=== PATIENT | female | born 1990 | race Two or more races ===

== ENCOUNTER 2021-08-15 07:37 | Outpatient (REF) | payer SELFPAY ==
[2021-08-15 08:20] LABS: COVID-19 Test Negative (Negative)
== END 2021-08-15 07:38 | disposition home or self-care (01) ==
LOC: HO.LAB 07:37
PROVIDERS: Visit Provider Internal Medicine
DX: Z20.822 Contact with and (suspected) exposure to COVID-19 (principal)
CPT/HCPCS: 36415; 87635; C9803

== ENCOUNTER 2022-10-09 08:23 | Emergency (ER) | payer OTHER, SELFPAY ==
--- NOTE | ~2022-10-09 | XR_ITS ---
EXAMINATION: XR CHEST CLINICAL INFORMATION: Shortness of breath for one month COMPARISON: None TECHNIQUE: Frontal view of the chest was obtained. FINDINGS: Normal symmetric lung volumes. No parenchymal consolidation. No pleural effusion. No pneumothorax. Cardiomediastinal silhouette and pulmonary vascularity are within normal limits. No acute osseous abnormalities. XR/XR chest 1V IMPRESSION: Clear lungs
[2022-10-09 08:26] VITALS: BP 145/89; PULSE 67; RESP 18; TEMP 37.2; O2SAT 100; BMI 32.2
[2022-10-09 09:22] LABS: COVID-19 Test Negative (Negative); IDNOW Serial# 16C4AD1C; IDNOW Serial# BCCEAD1C; Influenza A Negative (Negative); Influenza B2 Negative (Negative)
[2022-10-09 09:50] VITALS: PULSE 70; RESP 16; O2SAT 99
[2022-10-09] MEDS: Albuterol Sulfate (0.083%) 2.5 MG/3 ML VIAL.NEB 5 MG INHALE (09:50)
[2022-10-09 10:07] LABS: MANUAL DIFF FLAG NO
[2022-10-09 10:10] LABS: Basophils Absolute Auto 0.2 X10*3/uL (0.0-0.2); Basophils Percent Auto 1.7 % (0-2); Eosinophils Absolute Auto 1.2 X10*3/uL (0.0-0.4); Eosinophils Percent Auto 12.8 % (0-4); Hemoglobin 13.3 g/dl (12.0-16.0); Imm Gran Abs Auto 0.04 X10*3/uL (0.00-0.03); Imm Gran Pct Auto 0.4 % (0.0-0.4); Lymphocytes Absolute Auto 3.2 X10*3/uL (1.2-4.9); Mean Corpuscular HGB Conc 34.1 g/dl (31.0-35.0); Mean Corpuscular Hemoglobin 29.4 pg (27.0-33.0); Mean Corpuscular Volume 86.3 fL (80.0-98.0); Mean Platelet Volume 10.4 fL (9.4-12.3); Monocytes Absolute Auto 0.5 X10*3/uL (0.1-1.2); Neutrophils Absolute Auto 4.1 x10*3/uL (2.0-8.3); Neutrophils Percent Auto 45.1 % (45-73); Platelet Count 274 X10*3/uL (160-400); Red Blood Count 4.52 X10*6/uL (4.20-5.50); Red Cell Distribution Width 12.9 % (11.0-16.0)
[2022-10-09 10:17] LABS: Prothrombin Time 11.1 SEC (10.0-13.1)
[2022-10-09 10:20] VITALS: PULSE 70; RESP 16; O2SAT 100
[2022-10-09 10:20] LABS: D Dimer High Sensitivity < 150 NG/ML
--- NOTE | 2022-10-09 10:22 | PC.NURSE ---
Pt is alert/oriented. Reports intermittent SOB since Aug. after having a cold. Cough has resolved however pt continues to feel SOB with exertion. Also notes partner states breathing is weird at night Has sleep study soon for testing. Receiving updraft at this time, sat 100% LS with sl exp wheezes throughout, breathing even/unlabored. Skin pwd.
[2022-10-09 10:37] LABS: B Type Natriuretic Peptide 10 pg/mL (<100)
[2022-10-09 10:39] LABS: Alanine Aminotransferase 27 U/L (0-31); Albumin Level 4.2 g/dL (3.5-5.0); Alkaline Phosphatase 91 U/L (39-117); Anion Gap 12 (12-20); Aspartate Amino Transferase 19 U/L (5-31); Bilirubin Total 0.8 mg/dL (0.0-1.0); Blood Urea Nitrogen 11 mg/dL (9-16); Calcium 9.3 mg/dL (8.4-10.2); Carbon Dioxide 23 mmol/L (22-29); Chloride 107 mmol/L (96-108); Estimated Glomerular Filt Rate > 60; Glucose Random 89 mg/dL (60-115); Magnesium 1.8 mg/dL (1.6-2.6); Sodium 138 mmol/L (135-145); Total Protein 6.8 g/dL (6.5-8.0)
[2022-10-09 10:40] LABS: HCG Quantitative < 2 mIU/mL
--- NOTE | 2022-10-09 11:21 | ED.SOB ---
HPI - SOB/Dyspnea General Chief Complaint: Dyspnea Stated Complaint: Diff breathing Time Seen by Provider: 10/09/22 09:33 Source: patient Mode of arrival: ambulatory Limitations: no limitations History of Present Illness HPI Narrative: 31yoF with only PSHx of abdominal plasty no other medical history per patient who is presenting to the ER with complaints of generalized fatigue/malaise, intermittent productive to nonproductive cough with shortness of breath since . Reports that she had some type of cold on and since then she has been having this residual cough with shortness of breath and generalized fatigue/malaise. Reports that she was using her friend's albuterol inhaler and that provided mild symptomatic relief. Therefore she called her PCP and they also prescribed her an albuterol inhaler. She has a follow-up appointment with a corporate operations compliance manager on Saturday this week. Although she reports over the past few days she has feels like she is getting worse winded which is speaking short sentences and walking or any type of movement. Reports she is on an IUD. Denies any fevers, recent travel, dizziness, chest pain, orthopnea, palpitations, paresthesias, nausea/vomiting/diarrhea, abdominal pain, waking, lower extremity edema or calf tenderness, recent travel on a long plane/train/airplane ride, any estrogen usage, history of DVT or PE, hypercoagulation disorder, history of cancer recent immobilization or any IV drug use or any other symptoms complaints or concerns at this time. MD elicited complaint: shortness of breath, cough and pain with inspiration Onset (ago): day(s) (1 month and a half worse in past few days including today) Timing: constant and progressively worsening Severity: moderate Exacerbating factors: exertion, movement, coughing, inspiration, talking and deep breaths Relieving factors: nothing Associated symptoms: cough and sputum production Treatment prior to arrival: none Related Data Home oxygen amount: none Previous Rx's Medication Instructions Recorded albuterol sulfate 90 mcg/actuation 1 inh inhalation QID PRN shortness 10/09/22 aerosol inhaler of breath or wheezing #8.5 grams prednisone 20 mg tablet 40 mg PO DAILY 5 days #10 tabs 10/09/22 Allergies Allergy/AdvReac Type Severity Reaction Status Date / Time No Known Allergies Allergy Unverified 05/05/20 16:32 Review of Systems Review of Systems: Constitutional : No Weight loss, No Fever, No Chills, No Night Sweats, + Fatigue, + Malaise ENT/Mouth : No Hearing loss, No Ear Pain, No Nasal Congestion, No Sinus Pain, No Hoarseness, No sore throat, No Rhinorrhea, No Swallowing Difficulty Eyes: No Eye Pain, No Swelling, No Redness, No Foreign Body, No Discharge, No Vision Changes Cardiovascular : No Chest Pain, + SOB, + Dyspnea on Exertion, No Orthopnea, No Edema, No Palpitations Respiratory : + Cough, + Sputum, No Wheezing, No Smoke Exposure, + Dyspnea Gastrointestinal : No Nausea, No Vomiting, No Diarrhea, No Constipation, No abdominal Pain, No Hematochezia, No Melena Genitourinary : no irregular bleeding, No Dysuria, No Urinary Frequency, No Hematuria, No Urinary Incontinence, No Urgency, No Flank Pain, No Urinary Flow Changes, No Hesitancy Musculoskeletal : No joint pain, + Myalgias, No Joint Swelling Skin : No Skin Lesions, No rash Neuro : No Weakness, No Numbness, No Paresthesias, No Loss of Consciousness, No Dizziness, No Headache Psych : No Anxiety/Panic, No Depression, No SI/HI/AH/VH, No Social Issues, Heme/Lymph: No Bruising, No Bleeding,No Lymphadenopathy Endocrine : No Polyuria, No Polydipsia, No Temperature Intolerance Yes all other systems are reviewed and are negative [facility] Past Medical History Attestation statement: The following information was validated with the patient. Source: old records reviewed and nursing notes reviewed Social History Social History Smoked in Last 30 Days: No Use of substances other than those prescribed or required for medical reasons: Yes Substance Use Type: Marijuana Advance Directives: No Advance Directives Information Provided: Yes Physical Exam Vital Signs: Vital Signs: Last Vital Signs Temp 98.9 F 10/09/22 08:26 Pulse 70 10/09/22 10:20 Resp 16 10/09/22 10:20 BP 145/89 H 10/09/22 08:26 Pulse Ox 100 10/09/22 10:20 O2 Del Method 10/09/22 10:20 BMI result Body Mass Index 32.2 vital signs have been reviewed as normal and appeared to be correct. Blood pressure 145/89 Heart rate normal. Respiration rate normal. Temperature normal. Oxygen saturation normal. Appearance: Alert. Oriented X3. No acute distress. Head: Normal external exam. Normocephalic. Atraumatic. Eyes: PERRLA. EOMI. Conjunctiva and sclera normal. Eyelids normal. ENT: EAC normal. TM's Normal. Pharynx normal. Uvula midline. Moist mucous membranes. No lesions/ulcerations or masses noted on the tongue. Normal voice. No trismus noted. No drooling noted. No muffled voice noted. Neck: Normal inspection. Neck supple. FROM. No adenopathy. Thyroid Normal. No tracheal deviation noted. No crepitus is noted. No meningeal signs. No neck mass noted. No signs of trauma noted. CVS: Normal heart rate and rhythm. Heart sound normal. Pulses normal throughout. No murmurs/rales/gallops. Respiratory: No respiratory distress. Painless inspiration. Breath sounds normal. No wheezes/rales/rhonchi noted. Chest nontender. No crepitus is noted. No accessory muscle usage noted or decreased air movement noted. No signs of trauma. Abdomen: Soft and nontender. Nondistended. No guarding. No rigidity. Bowel sounds normal in all 4 quadrants. No distention noted. No organomegaly noted. No visible injury noted. No rebound tenderness. Negative Rovsing sign. Negative obturator's sign. Negative psoas sign. Negative Sullivan sign. Back: Full range of motion noted. Skin: Skin warm and dry. Normal skin color. Normal skin turgor. No rashes/lesions/lacerations noted. Extremities: No lower extremity edema. No calf tenderness is noted. Extremities exhibit normal range of motion and nontender. Neuro: Oriented X 3. No motor deficit. No sensory deficit. Reflexes normal. Normal steady gait. No focal neuro deficits noted. CN's II-XII intact bilaterally? Vascular: + radial pulses/+ 2 distal pedal pulses/+2 dorsalis pedis b/l. Normal cap refill. No cyanosis noted to upper extremity nails and lower extremity toes nails. Course Course Course Narrative: 31yoF with only PSHx of abdominal plasty no other medical history per patient who is presenting to the ER with complaints of generalized fatigue/malaise, intermittent productive to nonproductive cough with shortness of breath since . Reports that she had some type of cold on and since then she has been having this residual cough with shortness of breath and generalized fatigue/malaise. Reports that she was using her friend's albuterol inhaler and that provided mild symptomatic relief. Therefore she called her PCP and they also prescribed her an albuterol inhaler. She has a follow-up appointment with a corporate operations compliance manager on Saturday this week. Although she reports over the past few days she has feels like she is getting worse winded which is speaking short sentences and walking or any type of movement. Reports she is on an IUD. This patient presents with acute cough, most consistent with bronchitis. Presentation not consistent with acute bacterial pneumonia, influenza, asthma, transient airway hyperresponsiveness. Presentation not consistent with chronic causes of cough (including GERD, asthma, postnasal discharge, medication side effect, CHF, lung cancer or mass). Not consistent with PE as she has no risk factors. Patient had labs and all labs are within normal limits. Negative D-dimer. BNP is negative. She is negative for COVID and flu. Chest x-ray is within normal limits. Therefore at this time patient most likely viral bronchitis. She received a breathing treatment. Reports she feels a little bit better. Has a follow-up on Saturday with a corporate operations compliance manager. Therefore at this time will DC home with steroids and albuterol inhaler and instructions to follow-up with PCP/corporate operations compliance manager and to return if any new or worsening symptoms. Patient understands agrees with this plan. Medications Administered Discontinued Medications Generic Name Dose Route Start Last Admin Trade Name Dana PRN Reason Stop Dose Admin Albuterol Sulfate 5 mg 10/09/22 09:40 10/09/22 09:50 Albuterol Sulfate (0.083%) 2.5 Mg/3 Ml Vial.Neb INHALE 10/09/22 09:41 5 mg ONCE ONE Administration Medical Decision Making Lab Data MDM Lab Attestation statement: I reviewed the patient's lab results. 10/09/22 10:03 10/09/22 10:03 Labs: Lab Results 10/09/22 10/09/22 10/09/22 Range/Units 08:55 08:55 10:03 WBC 9.0 (4.8-10.8) X10*3/uL RBC 4.52 (4.20-5.50) X10*6/uL Hgb 13.3 (12.0-16.0) g/dl Hct 39.0 (37.0-47.0) % MCV 86.3 (80.0-98.0) fL MCH 29.4 (27.0-33.0) pg MCHC 34.1 (31.0-35.0) g/dl RDW 12.9 (11.0-16.0) % Plt Count 274 (160-400) X10*3/uL MPV 10.4 (9.4-12.3) fL Immature Gran % (Auto) 0.4 (0.0-0.4) % Neut % (Auto) 45.1 (45-73) % Lymph % (Auto) 35.0 (20-40) % [place] % (Auto) 5.0 (2-11) % Eos % (Auto) 12.8 H (0-4) % Baso % (Auto) 1.7 (0-2) % Lymph # (Auto) 3.2 (1.2-4.9) X10*3/uL [place] # (Auto) 0.5 (0.1-1.2) X10*3/uL Eos # (Auto) 1.2 H (0.0-0.4) X10*3/uL Baso # (Auto) 0.2 (0.0-0.2) X10*3/uL Abs Immat Gran (auto) 0.04 H (0.00-0.03) X10*3/uL Absolute Neuts (auto) 4.1 (2.0-8.3) x10*3/uL Absolute Nucleated RBC 0.000 (0.0-0.012) X10*3/uL Nucleated RBC % (auto) 0.0 (0.0-0.2) /100WBC PT (10.0-13.1) SEC INR (0.9-1.1) D-Dimer High Sensitivty NG/ML Sodium (135-145) mmol/L Potassium (3.3-5.1) mmol/L Chloride (96-108) mmol/L Carbon Dioxide (22-29) mmol/L Anion Gap (12-20) BUN (9-16) mg/dL Creatinine (0.5-1.4) mg/dL Estim Creat Clear Calc Estimated GFR Random Glucose (60-115) mg/dL Calcium (8.4-10.2) mg/dL Magnesium (1.6-2.6) mg/dL Total Bilirubin (0.0-1.0) mg/dL AST (5-31) U/L ALT (0-31) U/L Alkaline Phosphatase (39-117) U/L B-Natriuretic Peptide (<100) pg/mL Total Protein (6.5-8.0) g/dL Albumin (3.5-5.0) g/dL Beta HCG, Quant mIU/mL COVID-19 (ROVERTO) Negative (Negative) COVID-19 Clin Com See Note Influenza Type A (KATHRYN) Negative (Negative) Influenza Type B (KATHRYN) Negative (Negative) Influenza A & B Note See Note 10/09/22 10/09/22 10/09/22 Range/Units 10:03 10:03 10:03 WBC (4.8-10.8) X10*3/uL RBC (4.20-5.50) X10*6/uL Hgb (12.0-16.0) g/dl Hct (37.0-47.0) % MCV (80.0-98.0) fL MCH (27.0-33.0) pg MCHC (31.0-35.0) g/dl RDW (11.0-16.0) % Plt Count (160-400) X10*3/uL MPV (9.4-12.3) fL Immature Gran % (Auto) (0.0-0.4) % Neut % (Auto) (45-73) % Lymph % (Auto) (20-40) % [place] % (Auto) (2-11) % Eos % (Auto) (0-4) % Baso % (Auto) (0-2) % Lymph # (Auto) (1.2-4.9) X10*3/uL [place] # (Auto) (0.1-1.2) X10*3/uL Eos # (Auto) (0.0-0.4) X10*3/uL Baso # (Auto) (0.0-0.2) X10*3/uL Abs Immat Gran (auto) (0.00-0.03) X10*3/uL Absolute Neuts (auto) (2.0-8.3) x10*3/uL Absolute Nucleated RBC (0.0-0.012) X10*3/uL Nucleated RBC % (auto) (0.0-0.2) /100WBC PT 11.1 (10.0-13.1) SEC INR 1.0 (0.9-1.1) D-Dimer High Sensitivty < 150 NG/ML Sodium 138 (135-145) mmol/L Potassium 4.0 (3.3-5.1) mmol/L Chloride 107 (96-108) mmol/L Carbon Dioxide 23 (22-29) mmol/L Anion Gap 12 (12-20) BUN 11 (9-16) mg/dL Creatinine 0.73 (0.5-1.4) mg/dL Estim Creat Clear Calc 100.0 Estimated GFR > 60 Random Glucose 89 (60-115) mg/dL Calcium 9.3 (8.4-10.2) mg/dL Magnesium 1.8 (1.6-2.6) mg/dL Total Bilirubin 0.8 (0.0-1.0) mg/dL AST 19 (5-31) U/L ALT 27 (0-31) U/L Alkaline Phosphatase 91 (39-117) U/L B-Natriuretic Peptide 10 (<100) pg/mL Total Protein 6.8 (6.5-8.0) g/dL Albumin 4.2 (3.5-5.0) g/dL Beta HCG, Quant < 2 mIU/mL COVID-19 (ROVERTO) (Negative) COVID-19 Clin Com Influenza Type A (KATHRYN) (Negative) Influenza Type B (KATHRYN) (Negative) Influenza A & B Note Independent Interpretation I performed an independent interpretation of an: Plain X-Ray (I reviewed the chest x-ray results myself and within normal limits then discussed this with the patient she understands.) Radiology Impression Discussion of test interpretation with radiology: I have reviewed the radiologist's reading. Radiologist Impression: FINDINGS: Normal symmetric lung volumes. No parenchymal consolidation. No pleural effusion. No pneumothorax.? Cardiomediastinal silhouette and pulmonary vascularity are within normal limits. No acute osseous abnormalities. XR/XR chest 1V IMPRESSION: Clear lungs Prescription Management I considered prescription management with: Antibiotic (I considered antibiotic although patient is afebrile and she has been coughing since August and her chest x-ray is negative therefore no antibiotics indicated at this time.) Discharge Plan Discharge Clinical Impression: Bronchitis Patient Disposition: Home, Self-Care Instructions: Acute Bronchitis (ED) Prescriptions: New prednisone 20 mg tablet 40 mg PO DAILY 5 Days Qty: 10 0RF albuterol sulfate 90 mcg/actuation HFA aerosol inhaler 1 inh inhalation QID PRN (Reason: shortness of breath or wheezing) Qty: 8.5 0RF Referrals: Katarina Hughes MD [Primary Care Provider] - 2 days
[2022-10-09] MEDS: Albuterol Sulfate 90 MCG 8 GM INHALER 2 PUFF INHALE (11:37)
[2022-10-09 11:41] VITALS: PULSE 88; RESP 16; O2SAT 99
== END 2022-10-09 11:52 | disposition home or self-care (01) ==
PROVIDERS: Physician Assistant Medical; Emergency Provider Emergency Medicine; PCP Internal Medicine
DX: J40 Bronchitis, not specified as acute or chronic (principal); R06.02 Shortness of breath; Z20.822 Contact with and (suspected) exposure to COVID-19; F12.90 Cannabis use, unspecified, uncomplicated
CPT/HCPCS: 36415; 71045; 80053; 83735; 83880; 84702; 85025; 85379; 85610; 87502; 87635; 94664; 99284

== ENCOUNTER 2023-07-13 18:52 | Emergency (ER) | payer OTHER, SELFPAY ==
--- NOTE | ~2023-07-13 | XR_ITS ---
EXAMINATION: XR CHEST CLINICAL INFORMATION: Cough. Chest tightness. Shortness of breath. COMPARISON: Chest radiograph done on 10/09/2022. TECHNIQUE: Frontal view of the chest was obtained. FINDINGS: No significant abnormality is noted involving the heart, lungs, mediastinum, bony thorax or soft tissues. XR/XR chest 1V IMPRESSION: Unremarkable examination. No significant change.
[2023-07-13 19:00] VITALS: BP 126/82; PULSE 108; RESP 20; TEMP 36.9; O2SAT 96; BMI 31.2
[2023-07-13 19:29] LABS: IDNOW Serial# 08D9AD1C; Strep A Nucleic Acid Negative (Negative)
--- NOTE | 2023-07-13 19:31 | ED_ITS ---
HPI - General Adult General Chief complaint: Upper Respiratory Symptoms Stated complaint: sob,congested cough Time Seen by Provider: 07/13/23 19:31 Source: patient Mode of arrival: ambulatory Limitations: no limitations History of Present Illness HPI narrative: 32 year old female with no significant pmhx presents to the ED today for evaluation of cough productive of green sputum, chest tightness on coughing, WOODSON, and night sweats x 2 weeks. Reports sore throat x3 days that has since resolved. Denies fever, chills, wheezing, N/V, abd pain. Home COVID test negative. No known sick contacts. Related Data Previous Rx's Medication Instructions Recorded albuterol sulfate 90 mcg/actuation 1 inh inhalation QID PRN shortness 10/09/22 aerosol inhaler of breath or wheezing #8.5 grams prednisone 20 mg tablet 40 mg (2 x 20 mg) PO DAILY 5 days 10/09/22 #10 tabs albuterol sulfate 90 mcg/actuation 2 inh inhalation Q20M PRN Wheezing 07/13/23 aerosol inhaler #8.5 grams azithromycin 500 mg tablet See Rx Instructions PO .COMPLEX #3 07/13/23 (Zithromax TRI-YOU) tabs Allergies Allergy/AdvReac Type Severity Reaction Status Date / Time No Known Allergies Allergy Verified 07/13/23 19:03 Review of Systems Review of Systems: Constitutional: No fever, chills, fatigue, +night sweats, No weight changes ENT/Mouth: No ear pain, hearing loss, nasal congestion, sinus pain, rhinorrhea, sore throat Eyes: No eye pain, swelling, redness, vision changes, discharge Cardio: No chest pain, palpitations, PERRY, orthopnea, peripheral edema Pulm: No SOB, +cough, +sputum, No wheezing, dyspnea, hemoptysis GI: No nausea, vomiting, hematemesis, abdominal pain, diarrhea, constipation, hematochezia, melena : No irregular bleeding, dysuria, frequency, urgency, hesitancy, hematuria, flank pain, urinary flow changes, urinary incontinence or retention MSK: No back pain, neck pain, joint pain, myalgias Skin: No lesions, rashes Neuro: No weakness, numbness, paresthesias, LOC, dizziness, +headache All other systems reviewed and are negative. [facility] Past Medical History Attestation statement: The following information was validated with the patient. Source: old records reviewed and nursing notes reviewed Social History Alcohol intake: never Smoked in Last 30 Days: No Use of substances other than those prescribed or required for medical reasons: Yes Substance Use Type: Marijuana Advance Directives: No Advance Directives Information Provided: No Patient : No Physical Exam ED Vital Signs: Vital Signs - 24 hr 07/13/23 20:46 07/13/23 21:01 Pulse Rate 87 86 Respiratory Rate 16 Pulse Oximetry 95 Oxygen Delivery Method Room Air BMI result Body Mass Index 31.2 Vital signs stable, afebrile Const General: cooperative, healthy appearing, comfortable, no acute distress, alert and awake Orientation/consciousness: patient oriented x3 Limitations: no limitations HENMT Other: + posterior oropharynx without erythema or edema. No tonsillar exudates. Uvula midline. Controlling secretions speaking complete sentences. Ears: hearing grossly normal bilaterally, external ears normal, EAC's normal, mastoids normal and no periauricular adenopathy Face and sinus: Yes normal facial exam and Yes sinuses nontender Mouth: Normal oral and palatal mucosa present and moist mucous membranes Eyes General: appearance normal, both eyes and all related structures Conjunctivae: conjunctivae normal Sclerae: sclerae normal Pupils: Equal, round and reactive pupils present Neck Neck: Yes normal visual inspection, Yes no lymphadenopathy and Yes no meningeal signs Resp Other: + bilateral expiratory wheezes Effort & Inspection: normal respiratory effort Cardio Rate: regular rate Rhythm: regular rhythm Peripheral pulses: radial pulses present GI Inspection: Yes normal to inspection Palpation (GI): Soft to palpation, nontender and no splenomegaly Skin General skin exam: no rashes or lesions noted Neuro General: patient oriented x3, gait normal, moves all extremities and no meningeal signs Cranial nerves: Yes Equal, round and reactive pupils present Extrem General: Yes normal to inspection, Yes full ROM and Yes capillary refill normal Course Course Course Narrative: 1121-- On re-evaluation, patient's lungs are clear to auscultation bilaterally after albuterol treatment. Patient states her breathing has improved however fee ls a little jittery. I explained to her that this is normal with albuterol. Discussed her negative serology. She likely has an URI vs bronchitis. Will send a Z-You and albuterol refill to her pharmacy. Discussed strict return precautions. All questions answered at this time. Patient is agreeable disposition stable for discharge. Medications Administered Discontinued Medications Generic Name Dose Route Start Last Admin Trade Name Dana PRN Reason Stop Dose Admin Albuterol/Ipratropium 3 ml 07/13/23 20:58 07/13/23 21:00 Albuterol/Iprat 2.5/0.5mg 3 Ml Ampul.Neb INHALE 07/13/23 20:59 3 ml ONCE ONE Administration Medical Decision Making Medical Decision Making [facility] Narrative: 32 year old female with no significant pmhx presents to the ED today for evaluation of cough productive of green sputum, chest tightness on coughing, WOODSON, and night sweats. VSS. Afebrile. Nontoxic appearing and in NAD. RRR. Lungs with bilateral expiratory wheezes. Clinical concern for viral syndrome, pneumonia. Lower suspicion for strep throat. Unlikely mono, [employer], pharyngeal abscess, epiglottitis. Viral serology, strep swab and CXR obtained in triage. Plan to review and re-evaluate patient. Differential Diagnosis Differential Diagnoses: The differential diagnosis associated with the presentation includes As above. Admission/Observation Not indicated. Lab Data [facility] Lab Attestation statement: I reviewed the patient's lab results. As above. Labs: Lab Results 07/13/23 Range/Units 19:10 COVID-19 (ROVERTO) Negative (Negative) COVID-19 Clin Com See Note Influenza Type A (KATHRYN) Negative (Negative) Influenza Type B (KATHRYN) Negative (Negative) Influenza A & B Note See Note S. pyogenes GrpA KATHRYN Negative (Negative) Independent Interpretation I performed an independent interpretation of an: Plain X-Ray Interpretation: Chest x-ray without consolidation or infiltrate, agree with radiologist's interpretation. Radiology Impression Discussion of test interpretation with radiology: I have reviewed the radiologist's reading. Radiologist Impression: XR chest 1V IMPRESSION: Unremarkable examination. No significant change. External Record Review External record reviewed: Inpatient record Prescription Management I considered prescription management with: Antibiotic and Other (Steroid) Critical Care Time Critical Care Time Critical Care Time: No Discharge Plan Discharge Clinical Impression: Upper respiratory infection Patient Disposition: Home, Self-Care Instructions: Upper Respiratory Infection (ED) Additional Instructions: You tested negative for COVID, flu, strep. Your chest x-ray did not demonstrate pneumonia. You likely have an upper respiratory infection vs bronchitis. Azithromycin is antibiotic. A short course of this has been sent to your pharmacy to take over the next 5 days. Take this as prescribed do not miss any doses or stop it early. This may cause symptoms to come back or worsen. Additionally an albuterol inhaler has been sent to your pharmacy. Use this as needed for shortness of breath or wheezing. Return to the emergency department if symptoms persist or worsen. The case of an emergency call 911. Please follow-up with your primary care provider as needed. Prescriptions: New albuterol sulfate 90 mcg/actuation HFA aerosol inhaler 2 inh inhalation Q20M PRN (Reason: Wheezing) Qty: 8.5 0RF Rx Instructions: for up to 3 doses azithromycin [Zithromax TRI-YOU] 500 mg tablet See Rx Instructions .ROUTE .COMPLEX Qty: 3 0RF Rx Instructions: For 250 mg dose pack: take 500 mg today (day 1), then 250 mg for 4 days (days 2-5) No Action prednisone 20 mg tablet 40 mg PO DAILY 5 Days Qty: 10 0RF albuterol sulfate 90 mcg/actuation HFA aerosol inhaler 1 inh inhalation QID PRN (Reason: shortness of breath or wheezing) Qty: 8.5 0RF Referrals: Physician,Unknown J [Primary Care Provider] - Stand Alone Forms: Work/School Release Interventions: ED Discharge Assessment Last Done: 07/13/23 21:27 Discharge Date/Time: 07/13/23 21:27
[2023-07-13 19:36] LABS: IDNOW Serial# 9DB6401D; Influenza A Negative (Negative); Influenza B2 Negative (Negative)
[2023-07-13 19:37] LABS: COVID-19 Test Negative (Negative); IDNOW Serial# BCCEAD1C
[2023-07-13 20:46] VITALS: PULSE 87; O2SAT 95
[2023-07-13] MEDS: Albuterol/Iprat 2.5/0.5MG 3 ML AMPUL.NEB INHALE (21:00)
[2023-07-13 21:01] VITALS: PULSE 86; RESP 16; O2SAT 97
== END 2023-07-13 21:27 | disposition home or self-care (01) ==
PROVIDERS: Emergency Provider Emergency Medicine Emergency Medical Services
DX: J06.9 Acute upper respiratory infection, unspecified (principal); R05.9 Cough, unspecified; Z11.52 Encounter for screening for COVID-19
CPT/HCPCS: 71045; 87502; 87635; 87651; 94640; 99284